=== PATIENT | male | born 2000 | race Caucasian/White ===

== ENCOUNTER 2018-02-27 00:42 | Emergency (ER) | payer BC, SELFPAY ==
[2018-02-27 00:45] VITALS: BP 138/86; PULSE 64; RESP 18; TEMP 36.8; O2SAT 98; BMI 22.8
--- NOTE | 2018-02-27 01:06 | NURSING ---
OFFICER DELMIS SAID IF PATIENT GETS DISCHARGED TO CALL DISPATCH AND THEY WILL COME AND GIVE HIM A RIDE HOME
[2018-02-27 01:31] LABS: Absolute Lymphocyte Count 2.23 X10^3/ul (0.83-4.51); Basophil# 0.04 X10^3/uL; Basophil% 0.4 % (0-1); Eosinophils% 1.1 % (0-5); Hematocrit 43.6 % (40-54); Hemoglobin 15.2 g/dl (13.0-16.5); Lymphocyte # 2.23 X10^3/ul (4.0); Lymphocyte % 24.5 % (19-41); Mean Corp Hgb Conc 34.9 g/gl (32-36); Mean Corpuscular Hgb 31.8 pg (27.0-32.0); Mean Corpuscular Volume 91.2 fL (80-94); Mean Platelet Vol. 10.7 fl (6.2-12.0); Monocyte# 0.72 X10^3/uL; Monocyte% 7.9 % (0-10); Neutrophil % 65.9 % (47-70); POSITIVE COUNT NO; POSITIVE DIFFERENTIAL NO; POSITIVE MORPHOLOGY NO; Platelet Count 241 K/mm3 (150-450); RBC Distribution Width CV 12.7 % (11.6-14.6); RBC Distribution Width SD 41.8 fl (35.1-43.9); Red Blood Count 4.78 M/mm3 (4.6-6.2); White Blood Count 9.1 K/mm3 (4.4-11.0)
[2018-02-27 01:39] LABS: Anion Gap 4 (5-15); BUN 12 mg/dL (7-18); BUN/Creat Ratio 11.5 RATIO (10-20); Calcium,Total 9.1 mg/dL (8.5-10.1); Chloride 106 mmol/L (98-107); Creatinine, Serum 1.04 mg/dL (0.70-1.30); EST Glomerular Filtration Rate 97 mL/min (>60); Est Glom Filt Rate - Afr Amer 117 mL/min (>60); Estimated Creatinine Clearance 109.95 ml/min; Glucose 97 mg/dL (74-106); Sodium Level 138 mmol/L (136-145)
[2018-02-27 01:51] LABS: Alcohol, Blood (Medical)-Serum < 3.0 mg/dL
[2018-02-27 01:57] LABS: Amphetamine Urine VISTA NEGATIVE (<1000 ng/mL); Barbiturate Urine VISTA NEGATIVE (< 200 ng/mL); Benzodiazepine Urine VISTA NEGATIVE (< 200 ng/mL); Cocaine Urine VISTA NEGATIVE (< 300 ng/mL); Ecstacy Urine VISTA NEGATIVE (< 500 ng/mL); Methadone Urine VISTA NEGATIVE (< 300 ng/mL); PCP Urine VISTA NEGATIVE (< 25 ng/mL); THC Urine VISTA NEGATIVE (< 50 ng/mL); Vista UDS pH Range 6
[2018-02-27 02:00] VITALS: RESP 13
--- NOTE | 2018-02-27 02:12 | NURSING ---
CALLED CRISIS AT 0212
--- NOTE | 2018-02-27 04:15 | ED.DCSUM_ITS ---
- ER Visit Summary Date of Service: 02/27/18 Chief Complaint: Suicidal History of Present Illness: The patient is a 17 M brought in by police after he reportedly made a post on Facebook stating that he went to kill himself. Patient states he did a lot of stuff going on that led to this but does not elaborate with me. Patient reports starting on medication for anxiety approximately 2 months ago. He thinks that this medication is helping his anxiety. He denies a specific plan to hurt himself. He denies any prior attempts. Physical Examination: Vital signs are unremarkable. Patient sitting upright in bed no acute distress. He is alert and cooperative. Head neck examination is normal. Heart is regular rate and rhythm. Lung sounds are clear. Abdomen is soft nontender. Skin examination reveals no rash or lesions. Neuro exam reveals normal strength and sensation. Psychiatric evaluation reveals normal speech pattern. He does admit to making statements about suicide but denies plan. Test Results: CBC and chemistry studies are unremarkable. Tox screen and EtOH are normal. Emergency Department Course and Treatment: Cesia from the counseling center presented and evaluated the patient. At this time we both feel patient is stable to safety plan with close follow-up. Counseling center will call him tomorrow and will follow up with him in the office on Thursday. Treatment Plan: [] Disposition: Discharge Impression: Depression This note was generated with [employer] dictation software. It may contain incorrect words, spelling, and punctuation that were not noted in review of the chart prior to signing ED Disposition - Plan for ED Patient: Chief Complaint: Mental Health Referrals: Eula Lucero MD [Primary Care Provider] -
--- NOTE | 2018-02-27 04:47 | ED.DEP ---
ED Disposition - Plan for ED Patient: Disposition: Home or Assisted Living Chief Complaint: Mental Health Instructions: ED Depression Referrals: Eula Lucero MD [Primary Care Provider] - Counseling,Center [GROUP OF PHYSICIANS] - As soon as possible
[2018-02-27 05:16] VITALS: RESP 16
[2018-02-27 05:19] VITALS: RESP 16
== END 2018-02-27 05:19 | disposition home or self-care (01) ==
PROVIDERS: Emergency Provider Emergency Medicine; Family Provider Family Medicine; PCP Family Medicine
DX: F32.9 Major depressive disorder, single episode, unspecified (principal); F41.9 Anxiety disorder, unspecified; Z79.899 Other long term (current) drug therapy
CPT/HCPCS: 36415; 80048; 80307; 80320; 85025; 99285; G0480